=== PATIENT | female | born 1975 | race Hispanic/Latino ===

== ENCOUNTER 2023-12-30 12:39 | Emergency (ER) | payer OTHER ==
[~2023-12-30] VITALS: Ht 165.1 cm; Wt 74.8 kg
[2023-12-30 12:48] VITALS: PULSE 99; RESP 16; TEMP 98.3; O2SAT 100
[2023-12-30] MEDS ORDERED: DOXYCYCLINE HY100 MG PO (13:11)
== END 2023-12-30 13:15 | disposition home or self-care (01) ==
LOC: ER 12:46
DX: M79.662 Pain in left lower leg (principal); S80.862A Insect bite (nonvenomous), left lower leg, initial encounter; E11.9 Type 2 diabetes mellitus without complications; Z86.79 Personal history of other diseases of the circulatory system
CPT/HCPCS: 99283